=== PATIENT | male | born 1975 | race Caucasian/White ===

== ENCOUNTER 2020-12-24 10:37 | Emergency (ER) | payer OTHER ==
[~2020-12-24 10:37] MED LIST: XANAX0.5 MG PO
== END 2020-12-24 13:55 | disposition home or self-care (01) ==
LOC: FER 10:37
DX: U07.1 COVID-19 (principal); F17.220 Nicotine dependence, chewing tobacco, uncomplicated; Z88.5 Allergy status to narcotic agent
CPT/HCPCS: J1885; J7030; U0002

== ENCOUNTER 2021-09-26 16:34 | Emergency (ER) | payer OTHER | END 2021-09-26 18:15 | disposition left against medical advice (07) | LOC: FER 16:34 | PROVIDERS: Physician Assistant | DX: R22.32 Localized swelling, mass and lump, left upper limb (principal); F17.210 Nicotine dependence, cigarettes, uncomplicated; Z53.29 Procedure and treatment not carried out because of patient's decision for other reasons | CPT/HCPCS: 73080 ==